=== PATIENT | female | born 1985 | race American Indian/Alaskan Native ===

== ENCOUNTER 2019-08-30 09:15 | Day surgery (SDC) | payer OTHER ==
--- NOTE | 2019-08-23 16:20 | History and Physical Report ---
History of Present Illness Date of examination: 08/22/19 History of present illness: Patient has been reassessed/reevaluated. H&P has been reviewed. No interval changes. This is a 33 years old female who presents with menstrual disorder. The symptoms began 1 month ago. Patient states menses had been regular until LMP. Bleeding has been getting heavier. She complains of heavy bleeding and clotting, but denies irregular menses, mid-cycle spotting, lack of menses, dysmenorrhea, history of ovarian cysts, history of thyroid disease, history of fibroids, history of PCOS, history of bleeding disorder, lightheadedness, fatigue and cramping. Menses started at age 8. Interval between menses is 26 days and 28 days. Number of pads used per day is 6-8. Menstrual flow lasts > 7 days. Patient reports that for pain she uses Tylenol. Patient's work up has included a CBC which showed anemia and a hysteronogram which revealed an intracavitary lesion consistent with a myoma. Patient's symptoms when present disrupts her normal daily activities. Hormonal therapies have failed. Patient desires definitive treatment Vital Signs: Patient Profile: 33 Years Old Female LMP: 08/01/2019 Height: 62 inches Weight: 253 pounds BMI: 46.27 Menstrual History: LMP (date): 08/01/2019 On BCP's at conception: no Current Method of Contraception: None Past History : 0 Term Births: 0 Premature Births: 0 Living Children: 0 Para: 0 Mult. Births: 0 Prev : 0 Aborta: 0 Elect. Ab: 0 Spont. Ab: 0 Ectopics: 0 CADET DECK History Uterine Surgery (not C/S): negative Operations: Tonsillectomy Uterine Anomaly: positive Endometrial polyp Infection History HIV Risk Eval: no Personal hx. of genital herpes: no Hx of STD: None Current Allergies (reviewed today): No known allergies Past Medical History: Asthma " Pre-diabetic" Past Surgical History: Tonsillectomy Family History Summary: Other Family Member - Has Family History of Uterine Cancer - Entered On: 07/12/2019 Other Family Member - Has Family History of Ovarian Cancer - Entered On: 07/12/2019 Other Family Member - Has No Family History of Colon Cancer - Entered On: 07/12/2019 Other Family Member - Has Family History Breast Cancer - Entered On: 07/12/2019 Other Family Member - Has Family History of Hypertension - Entered On: 07/12/2019 Other Family Member - Has Family History of Diabetes - Entered On: 07/12/2019 Other Family Member - Has Family History of Coronary Heart Disease - Entered On: 07/12/2019 Other Family Member - Has Family History of Asthma - Entered On: 07/12/2019 Social History: Marital Status: Single Children: 0 Occupation: Mental Health Therapist Smoking History: Patient has never smoked. Risk Factors: Smoked Tobacco Use: Never smoker Smokeless Tobacco Use: Never Passive smoke exposure: no HIV high-risk behavior: no Caffeine use: <1 drinks per day Alcohol use: yes Type: occ Exercise: yes Times per week: 3 Seatbelt use: 100 % Review of Systems General Complains of fatigue. Denies fever, chills, sweats, anorexia, weakness, malaise, weight loss and sleep disorder. Complains of menorrhagia and abnormal vaginal bleeding. Denies vaginal discharge, incontinence, dysuria, hematuria, urinary frequency, amenorrhea, pelvic pain, genital sores, decreased libido, painful periods, painful sex, urinary urgency, hot flashes, vaginal dryness, vaginal itching and vaginal odor. CV Denies chest pains, palpitations, syncope, dyspnea on exertion, orthopnea, PND and peripheral edema. Resp Denies cough, dyspnea at rest, excessive sputum, hemoptysis, wheezing and pleurisy. GI Denies nausea, vomiting, diarrhea, constipation, change in bowel habits, abdominal pain, melena, hematochezia, jaundice, gas/bloating, indigestion/heartburn, dysphagia and odynophagia. Breast Denies left breast lump, right breast lump, nipple discharge, bloody di scharge from nipple, breast pain, abnormal mammogram and breast enlargement. Psych Denies depression, anxiety, irritability and mood swings. Past History Past Medical History: other (SEE HPI) Past Surgical History: Other (SEE HPI) Social history: full code, other (SEE HPI) Family history: other (SEE HPI) Medications and Allergies Allergies Allergy/AdvReac Type Severity Reaction Status Date / Time No Known Allergies Allergy Unverified 08/23/19 15:02 Home Medications Medication Instructions Recorded Confirmed Last Taken Type ALBUTEROL Inhaler 2 puff IH Q4H PRN 06/04/16 08/23/19 Unknown History Review of Systems Constitutional: other (SEE HPI) Exam - Physical Exam Narrative exam: HEENT: normocephalic, no lesions or deformities Skin no significant abnormal lesions or rashes Chest: respiratory effort normal, clear to auscultation CV: regular, normal S1-S2, no murmur, no rub, no gallop Abdomen: Obese, normal bowel sounds, soft, nontender, no HSM Neuro: no gross anomalities Extremities: no clubbing, cyanosis, or edema CADET DECK Exams Vulva/Vagina: No lesions, normal BUS, normal rugaemoderate amount blood in vault Cervix: No lesions; no cervical motion tenderness Uterus: unable to palpate due to obesity Adnexae: unable to palpate due to obesity Rectovaginal: exam defered Results - Labs CBC & Chem 7: 08/28/19 07:15 08/28/19 07:15 Assessment and Plan - Patient Problems (1) Submucous leiomyoma of uterus Status: Acute Plan to address problem: Diagnosis explained to patient . Questions answered. Medical and surgical treatment options discussed Discussed with patient various medical, surgical and radiological therapies common for treatment including expectant management, myomectomy hysterectomy and uterine artery embolization Patient desires to retain future fertility. She desires myomectomy Patient desires hysteroscopic myomectomy Indications for and description of the hysteroscopy given. .Discussed risk of surgery including infection, bleeding and risk of perforating her uterus. Questions answered. Patient understands and desires to proceed (2) Menorrhagia Status: Acute Qualifiers: Menorrhagia type: with irregular cycle Qualified Code(s): N92.1 - Excessive and frequent menstruation with irregular cycle Plan to address problem: Probably secondary to # 1 (3) Dysmenorrhea Status: Acute Plan to address problem: Probably secondary to # 1 (4) Anemia due to chronic blood loss Status: Acute Plan to address problem: Probably secondary to # 2
[2019-08-28 07:53] LABS: Basophils # (Auto) 0.1 K/mm3 (0.0-0.1); Basophils % (Auto) 1.1 % (0.0-1.8); Eosinophils # (Auto) 0.2 K/mm3 (0.0-0.4); Eosinophils % (Auto) 4.9 % (0.0-4.3); Hematocrit 31.6 % (30.3-42.9); Lymphocytes % (Auto) 39.4 % (13.4-35.0); Mean Corpuscular HGB Conc 32 % (30-34); Mean Corpuscular Volume 77 fl (79-97); Monocytes # (Auto) 0.4 K/mm3 (0.0-0.8); Monocytes % (Auto) 7.3 % (0.0-7.3); Platelet Count 576 K/mm3 (140-440); Red Blood Count 4.12 M/mm3 (3.65-5.03); Red Cell Distribution Width 18.5 % (13.2-15.2)
[2019-08-28 08:03] LABS: BUN/Creatinine Ratio 12; Blood Urea Nitrogen 7 mg/dL (7-17); Calcium 9.1 mg/dL (8.4-10.2); Hemolysis Index 15
--- NOTE | 2019-08-30 07:44 | Anesthesia Day of Surgery ---
Anesthesia Day of Surgery - Day of Surgery Patient Examined: Yes Patient H&P Reviewed: Yes Patient is NPO: Yes
--- NOTE | 2019-08-30 07:45 | Anesthesia Consultation ---
Anesthesia Consult and Med Hx Date of service: 08/30/19 - Airway Anesthetic Teeth Evaluation: Good ROM Head & Neck: Adequate Mental/Hyoid Distance: Adequate Mallampati Class: Class II Intubation Access Assessment: Good - Pre-Operative Health Status ASA Pre-Surgery Classification: ASA2 Proposed Anesthetic Plan: General - Pulmonary Hx Smoking: No Hx Asthma: Yes (Last used inhaler 2 weeks ago. Allergies, and exercise induced) Hx Respiratory Symptoms: No (+2FS) - Central Nervous System Hx Psychiatric Problems: No - Hematic Hx Sickle Cell Disease: Yes (May have trait, not sure) - Other Systems Hx Alcohol Use: Yes (Occas) Hx Cancer: No
[~2019-08-30 09:15] MED LIST: BACTERIOSTATIC SODIUM CHLORIDE 0.9% 30 ML VIAL INFILTRATI ONE; HYDROmorphone 1 MG/1 ML INJ ONE; LACTATED RINGERS 1,000 ML IV SCH; LIDOCAINE MPF (2%) 20 MG/1 ML VIAL 5 ML ONE; MIDAZOLAM 2 MG/2 ML INJ IV NR; ONDANSETRON 4 MG/2 ML INJ IV PRN; SODIUM CHLORIDE 0.9% IRR 1,500 ML BOTTLE IR ONE; SODIUM CHLORIDE 0.9% IRRIG SOLN 3000 ML IR ONE; fentaNYL 100 MCG/2 ML INJ IV PRN; propofoL 200 MG/20 ML VIAL IV ONE
--- NOTE | 2019-08-30 09:27 | Operative Report ---
Operative Report Operative Report: Date of procedure: August 30, 2019 Pre-operative diagnosis: Menorrhagia with a intracavitary uterine mass Post-operative diagnosis: Same Procedure name(s): Operative hysteroscopy with MyoSure Surgeon: Aquilino Mcginnis MD Lock Master: [] Anesthesia: Gen. EBL: Minimal Complications: None Findings: Patient with large mass uterus large polyp versus myoma. At the clearance of mass both tubal ostium was seen Specimen(s): Uterine mass Procedure: Patient was brought into the operating room, where general anesthesia was induced without any difficulty. Patient was placed in dorsal lithotomy position. Prep and drape in the usual sterile manner. Timeout procedure was performed. The patient's bladder was emptied with a red rubber catheter. Speculum was placed in the vagina. Tenaculum was placed at 12:00 on the cervix. The cervical os was dilated to a 19 German diameter. The hysteroscope was placed and the findings noted above. The MyoSure device was primed. The device was placed through the cervical os. The mass was then removed using the MyoSure. The mass was completely removed with no evidence of puncture on the uterine wall. The Myosure instrumentation was removed. A gentle D&C was done with a banjo curette, all instruments were removed. The patient was awakened in the operating room and accompanied to recovery room in good condition.
--- NOTE | 2019-08-30 09:30 | Short Stay Summary ---
Short Stay Documentation Date of service: 08/30/19 - History Past Medical History: other (SEE HPI) Past Surgical History: Other (SEE HPI) Social history: full code, other (SEE HPI) - Allergies and Medications Current Medications: Allergies No Known Allergies Allergy (Unverified 08/23/19 15:02) Home Medications Medication Instructions Recorded Confirmed Last Taken Type ALBUTEROL Inhaler 2 puff IH Q4H PRN 06/04/16 08/30/19 08/29/19 History Active Medications Fentanyl (Sublimaze) 50 mcg IV Q5MIN PRN PRN Reason: Pain , Severe (7-10) Stop: 08/30/19 23:00 Lactated Ringer's (Lactated Ringers) 1,000 mls @ 125 mls/hr IV DIRECT DINORAH Last Admin: 08/30/19 07:55 Dose: 125 mls/hr Documented by: Midazolam HCl (Versed) 2 mg IV PREOP NR Stop: 08/30/19 23:59 Last Admin: 08/30/19 07:58 Dose: 2 mg Documented by: Ondansetron HCl (Zofran) 4 mg IV ONCE PRN PRN Reason: Nausea And Vomiting Stop: 08/30/19 23:00 - Physical exam General appearance: no acute distress HEENT: Atraumatic Lungs: Normal air movement Heart: Regular rate Gastrointestinal: normal Female Genitourinary: normal Rectal Exam: deferred Extremities: no ischemia, pulses symmetrical - Brief post op/procedure progress note Date of procedure: 08/30/19 (See dictated operative note) Condition: stable - Hospital course Hospital course: Patient was admitted underwent the above him procedure without any complications. Patient will be discharged with follow-up in office in 1-2 weeks for postop check. - Disposition Condition at discharge: Good Disposition: DC-01 TO HOME OR SELFCARE - Discharge Diagnoses (1) Submucous leiomyoma of uterus Status: Acute (2) Menorrhagia Status: Acute Qualifiers: Menorrhagia type: with irregular cycle Qualified Code(s): N92.1 - Excessive and frequent menstruation with irregular cycle (3) Dysmenorrhea Status: Acute (4) Anemia due to chronic blood loss Status: Acute Short Stay Discharge Plan Activity: advance as tolerated Diet: regular Additional Instructions: Patient office for fever, chills, nausea, vomiting, heavy vaginal bleeding or pain uncontrolled by pain relief. Follow up with: PRIMARY CARE, [Primary Care Provider] - 7 Days Prescriptions: Ibuprofen [Motrin 800 MG tab] 800 mg PO Q6H PRN #30 tablet PRN Reason: Pain DOXYCYCLINE Hyclate [Vibramycin CAP] 100 mg PO Q12HR #14 capsule
[2019-08-30] MEDS ORDERED: IBUPROFEN 800 MG TAB PO PRN (10:06)
--- NOTE | 2019-08-30 10:42 | Post Anesthesia Evaluation ---
- Post Anesthesia Evaluation Patient Participated: Yes Airway Patent: Yes Stable Respiratory Function: Yes Nausea/Vomiting: No Temp > 96.8F: Yes Pain Manageable: Yes Adequeate Hydration: Yes Anesthesia Complications: No Block Receding Appropriately: Not Applicable Patient on Ventilator: No
[2019-08-30 11:06] VITALS: BP 124/67
== END 2019-08-30 09:16 | disposition home or self-care (01) ==
LOC: OR 09:15
PROVIDERS: ATTEND Obstetrics & Gynecology
DX: N92.0 Excessive and frequent menstruation with regular cycle (principal); Z11.59 Encounter for screening for other viral diseases; N85.8 Other specified noninflammatory disorders of uterus; D50.0 Iron deficiency anemia secondary to blood loss (chronic); J45.909 Unspecified asthma, uncomplicated; Z72.89 Other problems related to lifestyle; Z98.890 Other specified postprocedural states; Z79.899 Other long term (current) drug therapy
CPT/HCPCS: 36415; 58558; 80048; 82962; 84703; 85025; 88305; A4217; J1170; J2250; J2704; J3010; J7120; U0003